=== PATIENT | female | born 2000 ===

== ENCOUNTER 2019-01-27 09:34 | Emergency (ER) | payer BC ==
--- NOTE | 2019-01-27 09:55 | UC ---
Respiratory Complaint HPI - HPI Summary HPI Summary: 18-year-old female presents with 5 week history of persistent nasal congestion, sinus pressure, postnasal drip, and nonproductive cough. States had some subjective fever and chills at the onset of symptoms but none recently. Over the past 3-4 days has felt lightheaded with her symptoms. Denies visual disturbances, ear pain, vertigo, sore throat, chest pain, palpitations, shortness of breath, abdominal pain, nausea, or vomiting. - History of Current Complaint Chief Complaint: UCGeneralIllness Stated Complaint: RESP COMPLAINT Time Seen by Provider: 01/27/19 09:40 Hx Obtained From: Patient Hx Last Menstrual Period: 01/24/19 Pain Intensity: 0 - Allergies/Home Medications Allergies/Adverse Reactions: Allergies Allergy/AdvReac Type Severity Reaction Status Date / Time No Known Allergies Allergy Verified 01/27/19 09:45 PMH/Surg Hx/FS Hx/Imm Hx Previously Healthy: Yes - Denies significant PMH - Surgical History Surgical History: None - Family History Known Family History: Positive: Non-Contributory - Social History Occupation: Student Lives: Dormitory/Roommates Alcohol Use: Occasionally Substance Use Type: None Smoking Status (MU): Never Smoked Tobacco Review of Systems All Other Systems Reviewed And Are Negative: Yes Constitutional: Positive: Fatigue. Negative: Fever, Chills Skin: Negative: Rash Eyes: Negative: Drainage, Eye Redness ENT: Positive: Nasal Discharge, Sinus Congestion, Sinus Pain/Tenderness. Negative: Sore Throat, Ear Ache Respiratory: Positive: Cough. Negative: Shortness Of Breath Cardiovascular: Negative: Chest Pain Gastrointestinal: Negative: Abdominal Pain, Vomiting, Nausea Genitourinary: Positive: Negative Musculoskeletal: Positive: Negative Neurological: Positive: Negative Is Patient Immunocompromised?: No Physical Exam - Summary Physical Exam Summary: GENERAL APPEARANCE: Well developed, well nourished, alert and cooperative, and appears to be in no acute distress. EYES: Conjunctiva clear. No drainage. EARS: External auditory canals and tympanic membranes clear, hearing grossly intact. NOSE: Moderate nasal congestion. No discharge. Maxillary sinus tenderness. THROAT: Pharynx normal. 2+ tonsils without exudate or lesions. Uvula midline. NECK: Neck supple, non-tender without lymphadenopathy. CARDIAC: Normal S1 and S2. No S3, S4 or murmurs. Rhythm is regular. There is no peripheral edema, cyanosis or pallor. Extremities are warm and well perfused. Capillary refill is less than 2 seconds. Peripheral pulses intact. LUNGS: Clear to auscultation without rales, rhonchi, wheezing or diminished breath sounds. Dry, non-productive cough. ABDOMEN: Positive bowel sounds. Soft, nondistended, nontender. No guarding or rebound. No masses or hepatosplenomegally. MUSKULOSKELETAL: ROM intact to all extremities. No joint erythema or tenderness. Normal muscular development. Normal gait SKIN: Skin normal color, texture and turgor with no lesions or eruptions. Triage Information Reviewed: Yes Vital Signs: Initial Vital Signs Temp 98.8 F 01/27/19 09:42 Pulse 85 01/27/19 09:42 Resp 18 01/27/19 09:42 BP 119/80 01/27/19 09:42 Pulse Ox 99 01/27/19 09:42 Vital Signs Reviewed: Yes Respiratory Course/Dx - Course Course Of Treatment: 18-year-old female presents with 5 week history of persistent nasal congestion, sinus pressure, postnasal drip, and nonproductive cough. States had some subjective fever and chills at the onset of symptoms but none recently. Over the past 3-4 days has felt lightheaded with her symptoms. Denies visual disturbances, ear pain, vertigo, sore throat, chest pain, palpitations, shortness of breath, abdominal pain, nausea, or vomiting. Afebrile. Vital signs stable. Patient had moderate nasal congestion, maxillary sinus tenderness , 2+ tonsils without exudate, no cervical lymphadenopathy, clear bilateral breath sounds, dry nonproductive cough, and otherwise unremarkable exam. Considering the duration of her symptoms will treat her for a bacterial sinusitis with Augmentin 8 his 5 mg twice a day 10 days as well as symptomatic treatment. Patient is to return here or follow up with the [facility] [place] in 3-5 days if symptoms are not improving. Anticipatory guidance and warning symptoms reviewed with the patient. Verbalizes understanding and agrees with plan of care. - Differential Dx/Diagnosis Differential Diagnosis/HQI/PQRI: Bronchitis, Lower Resp Infection, Sinusitis Provider Diagnosis: Sinusitis Discharge ED - Sign-Out/Discharge Documenting (check all that apply): Patient Departure All imaging exams completed and their final reports reviewed: No Studies - Discharge Plan Condition: Stable Disposition: HOME Prescriptions: Amoxicillin/Clavulanate TAB* [Augmentin TAB 875*] 875 mg PO BID #20 tab Fluticasone NASAL SPRAY 50MCG* [Flonase NASAL SPRAY 50MCG*] 2 spray BOTH NARES DAILY #1 btl Patient Education Materials: Sinusitis (ED) Referrals: No Primary Care Phys,NOPCP [Primary Care Provider] - Additional Instructions: Your history and exam are consistent with a sinus infection. Considering the duration of your symptoms we will start you on an antibiotic to treat the infection Start Augmentin 875 mg 1 tab twice a day for 10 days. Take with food to avoid upset stomach. Be sure to complete the entire course even if feeling better. Drink plenty of fluids to avoid dehydration especially if you are running any fever. Use a saline rinse kit such as Neti Pot or NeilMed at least twice a day to help thin secretions and promote drainage of the sinuses. Use fluticasone (Flonase) nasal spray 2 sprays each nostril once daily. Use an over the counter decongestant such as Sudafed according to directions to help with congestion. Take over the counter acetaminophen (Tylenol) or ibuprofen (Advil, Motrin) according to directions as needed for pain or fever. Return here of follow up at the [facility] in 3-5 days if symptoms do not improve. Seek immediate medical attention in the emergency room if you have fever greater than 100.5 F despite taking acetaminophen or ibuprofen, have chest pain , difficulty breathing, are unable to swallow, or have any worsening of symptoms. - Billing Disposition and Condition Condition: STABLE Disposition: Home
== END 2019-01-27 10:08 | disposition home or self-care (01) ==
LOC: UCEAST 09:34
DX: J32.9 Chronic sinusitis, unspecified (principal)
CPT/HCPCS: 99202; G0463